=== PATIENT | male | born 1980 | race Hispanic/Latino ===

== ENCOUNTER 2017-11-29 14:12 | Emergency (ER) | payer OTHER ==
[2017-11-29 14:22] VITALS: TEMP 98.7
[2017-11-29] MEDS ORDERED: Sodium Chloride 0.9% 1,000 ML IV ONE (14:53)
[2017-11-29] MEDS ORDERED: Sodium Chloride 0.9% 1,000 ML ONE (15:15)
[2017-11-29 15:27] LABS: BASO % 0.5 % (0.0-2.0); EOS # 0.3 K/uL (0.0-0.7); EOS % 3.8 % (0.0-4.0); HEMOGLOBIN 15.2 g/dL (12.0-18.0); LYMPH # 1.9 K/uL (1.0-4.3); LYMPH % 22.4 % (20.0-40.0); MEAN CELL VOLUME 82.8 fL (80.0-94.0); MEAN CORPUSCULAR HEMOGLOBIN 28.6 pg (27.0-31.0); MEAN CORPUSCULAR HGB CONC 34.6 g/dL (33.0-37.0); MEAN PLATELET VOLUME 8.2 fL (7.2-11.7); MONO # 0.5 K/uL (0.0-0.8); NEUT # 5.6 K/uL (1.8-7.0); NEUT % 67.3 % (50.0-75.0); RBC 5.31 Mil/uL (4.40-5.90); RED CELL DISTRIBUTION WIDTH 12.9 % (11.5-14.5); WHITE BLOOD COUNT 8.3 K/uL (4.8-10.8)
--- NOTE | 2017-11-29 15:27 | C.PDOC ---
History Of Present Illness 37 y/o male presents to the ER with 2 year history of intermittent RUQ pain. States he thinks he has gall stones and wants to be evaluated for this. This morning patient had similar episode of RUQ pain, associated with nausea, prompting him to come to the ER. Denies any current pain. Denies any fever, vomiting, diarrhea, or dysuria. Denies hx of abdominal surgeries. Also reports that when it gets hot, he often feels dizzy and wants to be evaluated for this as well. Reports dizziness is chronic for the past 2 years. Denies focal weakness. Reports that he has cysts in his head that he wants referral to surgeon for. Time Seen by Provider: 11/29/17 14:37 Chief Complaint (Nursing): Dizziness/Lightheaded History Per: Patient History/Exam Limitations: no limitations Onset/Duration Of Symptoms: Days Current Symptoms Are (Timing): Gone Past Medical History Reviewed: Historical Data, Nursing Documentation, Vital Signs Vital Signs: Last Vital Signs Temp 98.7 F 11/29/17 18:00 Pulse 70 11/29/17 18:00 Resp 18 11/29/17 18:00 BP 115/65 11/29/17 18:00 Pulse Ox 99 11/29/17 18:00 - Medical History PMH: No Chronic Diseases Surgical History: No Surg Hx Family History: States: No Known Family Hx - Social History Hx Alcohol Use: No Hx Substance Use: No - Immunization History Hx Tetanus Toxoid Vaccination: Yes Hx Influenza Vaccination: No Hx Pneumococcal Vaccination: No Review Of Systems Except As Marked, All Systems Reviewed And Found Negative. Constitutional: Negative for: Fever, Chills Respiratory: Negative for: Shortness of Breath Gastrointestinal: Positive for: Abdominal Pain (RUQ). Negative for: Vomiting, Diarrhea Genitourinary: Negative for: Dysuria, Frequency Skin: Negative for: Rash Neurological: Positive for: Dizziness. Negative for: Weakness, Numbness, Incoordination, Change in Speech Physical Exam - Physical Exam Appears: Non-toxic, No Acute Distress Skin: Normal Color, Warm, Dry Head: Atraumatic, Normacephalic, Other (2 lipomas noted to posterior and right scalp) Eye(s): bilateral: Normal Inspection (No nystagmus), PERRL, EOMI Oral Mucosa: Moist Neck: Normal ROM, Supple Chest: Symmetrical Cardiovascular: Rhythm Regular, No Murmur Respiratory: Normal Breath Sounds, No Rales, No Rhonchi, No Wheezing Gastrointestinal/Abdominal: Bowel Sounds (active), Soft, No Tenderness, No Distention, No Guarding Back: Normal Inspection, No CVA Tenderness Extremity: Bilateral: Atraumatic, Normal Color And Temperature, Normal ROM Neurological/Psych: Oriented x3, Normal Speech, Normal Cranial Nerves, Normal Motor, Normal Sensation, Normal Reflexes, Other (No focal deficits) Gait: Steady ED Course And Treatment - Laboratory Results Result Diagrams: 11/29/17 15:13 11/29/17 15:13 O2 Sat by Pulse Oximetry: 96 (room air) Pulse Ox Interpretation: Normal Medical Decision Making Medical Decision Making: Initial Plan: --Head CT w/o contrast --CMP --Lipase --Magnesium --Phosphorous --CBC --US Abdomen, Limited --IV fluids --Reassess and dispo Progress/Updates: Head CT: IMPRESSION: No intracranial mass, hemorrhage or evidence of acute infarct. Probable calcified and noncalcified sebaceous cysts of the scalp. Abdominal US: IMPRESSION: Two small nonspecific echogenic hepatic masses, largest 1.6 cm. 7 mm gallbladder polyp. Fatty infiltration of the liver. No evidence of cholecystitis or cholelithiasis. All findings discussed in detail with patient. Labs grossly normal. Patient has chronic >2 year old complaints and feels better after IVF. He was instructed on importance of following up with GI and gen sx Disposition - Disposition Referrals: Marco Diez MD [Staff Provider] - Michael Cleary MD [Staff Provider] - Disposition: HOME/ ROUTINE Disposition Time: 16:54 Condition: GOOD Additional Instructions: Follow-up with general surgery for surgical removal of sebacacous cysts. Follow- up with GI for further evaluation of liver masses and gallbladder polyps. Return to ED if condition worsens. Forms: Inaura (Danish) - Clinical Impression Clinical Impression: Liver mass, Gallbladder polyp, Sebaceous cyst - Scribe Statement The provider has reviewed the documentation as recorded by the Scribe (Clara Acevedo) Provider Attestation: All medical record entries made by the Scribe were at my direction and personally dictated by me. I have reviewed the chart and agree that the record accurately reflects my personal performance of the history, physical exam, medical decision making, and the department course for this patient. I have also personally directed, reviewed, and agree with the discharge instructions and disposition.
[2017-11-29 15:36] LABS: ALB/GLOB RATIO 1.4 (1.0-2.1); ALBUMIN 4.5 g/dL (3.5-5.0); ALT/SGPT 25 U/L (21-72); AST/SGOT 16 U/L (17-59); BLOOD UREA NITROGEN 12 mg/dL (9-20); CALCIUM 9.3 mg/dl (8.6-10.4); GFR NON-AFRICAN AMERICAN > 60; LIPASE 83 U/L (23-300)
--- NOTE | 2017-11-29 16:22 | CT ---
Date of service: 11/29/2017 PROCEDURE: CT HEAD WITHOUT CONTRAST. HISTORY: dizziness x 2 years COMPARISON: None available. TECHNIQUE: Axial computed tomography images were obtained through the head/brain without intravenous contrast. Radiation dose: Total exam DLP = 909.28 mGy-cm. This CT exam was performed using one or more of the following dose reduction techniques: Automated exposure control, adjustment of the mA and/or kV according to patient size, and/or use of iterative reconstruction technique. FINDINGS: HEMORRHAGE: No intracranial hemorrhage. BRAIN: No mass effect or edema. No atrophy or chronic microvascular ischemic changes. VENTRICLES: Unremarkable. No hydrocephalus. CALVARIUM: No fracture. Please note that there are several partially calcified ovoid scalp lesions, 1 right occipital measuring 2.3 cm and 1 midline vertex posteriorly measuring 1.8 cm. Likely calcified sebaceous cysts. There is a 3rd noncalcified 9 mm lesion in the high left parietal scalp. Again, likely sebaceous cyst. PARANASAL SINUSES: Unremarkable as visualized. No significant inflammatory changes. MASTOID AIR CELLS: Unremarkable as visualized. No inflammatory changes. OTHER FINDINGS: None. IMPRESSION: No intracranial mass, hemorrhage or evidence of acute infarct. Probable calcified and noncalcified sebaceous cysts of the scalp.
--- NOTE | 2017-11-29 16:40 | US ---
Date of service: 11/29/2017 HISTORY: RUQ pain COMPARISON: None. TECHNIQUE: Sonographic evaluation of the right upper quadrant of the abdomen. FINDINGS: LIVER: Measures 14.9 cm in length. Diffusely increased echogenicity of the liver parenchyma. Consistent with fatty infiltration. Two rounded echogenic mass in the right lobe of the liver, 1.2 x 1.4 x 1.6 cm and 6 x 7 x 8 mm. Nonspecific. GALLBLADDER: 7 mm polyp. No gallstones. No mural thickening or pericholecystic fluid. COMMON BILE DUCT: Measures 5 mm. No stones. No dilatation. PANCREAS: Unremarkable as visualized. No mass. No ductal dilatation. RIGHT KIDNEY: Measures 11.0 cm in length. Normal echogenicity. No calculus, mass, or hydronephrosis. AORTA: No aneurysmal dilatation. IVC: Unremarkable. OTHER FINDINGS: None . IMPRESSION: Two small nonspecific echogenic hepatic masses, largest 1.6 cm. 7 mm gallbladder polyp. Fatty infiltration of the liver. No evidence of cholecystitis or cholelithiasis.
[2017-11-29 18:04] VITALS: BP 115/65; PULSE 70; RESP 18
[2017-11-29 19:35] VITALS: O2SAT 96
== END 2017-11-29 18:08 | disposition home or self-care (01) ==
LOC: C.ER 14:12
DX: R16.0 Hepatomegaly, not elsewhere classified (principal); K82.4 Cholesterolosis of gallbladder; L72.3 Sebaceous cyst
CPT/HCPCS: 70450; 76705; 80053; 83690; 83735; 84100; 85025; 96360; 99284; J7030